=== PATIENT | female | born 1975 | race Two or more races ===

== ENCOUNTER 2019-07-13 14:02 | Emergency (ER) | payer MEDICAID ==
[~2019-07-13] VITALS: Wt 73.0 kg
[~2019-07-13 14:02] MED LIST: ALBU18HF INHALATION; PRED20TA PO
[2019-07-13 14:28] VITALS: BP 119/74
[2019-07-13] MEDS ORDERED: IPRATROPIUM (NEB) 0.5 MG/2.5 ML AMP NEB STA (14:57)
[2019-07-13] MEDS ORDERED: METHYLPREDNISOLONE 125 MG INJ IV STA (14:57)
[2019-07-13] MEDS ORDERED: ALBUTEROL 0.083% (NEB) 2.5 MG/3 ML AMP NEB STA ×2 (14:57→15:36)
[2019-07-13 16:03] VITALS: PULSE 92; RESP 20
== END 2019-07-13 16:13 | disposition home or self-care (01) ==
LOC: FTE 14:02
DX: J45.901 Unspecified asthma with (acute) exacerbation (principal)
CPT/HCPCS: 94640; 94664; 96374; J2930; Z7502; Z7610